=== PATIENT | male | born 1990 | race Caucasian/White ===

== ENCOUNTER 2022-01-19 19:40 | Emergency (ER) | payer SELFPAY ==
[~2022-01-19] VITALS: Ht 154.9 cm; Wt 63.5 kg
[2022-01-19 19:48] VITALS: BP 127/85
--- NOTE | 2022-01-19 19:51 | NUR ---
PT IN [facility] WITH [facility]
--- NOTE | 2022-01-19 19:56 | NUR ---
Dr. Mortensen examining patient.
--- NOTE | 2022-01-19 20:27 | NUR ---
Patient D/C to custody.
== END 2022-01-19 19:51 ==
LOC: MED 19:40
DX: Z02.89 Encounter for other administrative examinations (principal); V49.88XA Car occupant (driver) (passenger) injured in other specified transport accidents, initial encounter; Y93.89 Activity, other specified; Y92.89 Other specified places as the place of occurrence of the external cause; Y99.8 Other external cause status
CPT/HCPCS: 99283